=== PATIENT | female | born 1960 | race Caucasian/White ===

== ENCOUNTER 2025-07-15 13:11 | Outpatient (AMB) | payer OTHER, SELFPAY ==
--- NOTE | 2025-07-15 13:17 | A.OFFVIS_ITS ---
Intake Visit Reasons: sz Allergies azithromycin (From ZITHROMAX Z-BLAS) Allergy (Unknown, Unverified 06/03/20 15:16) NAUSEA From DILANTIN Allergy (Unknown, Uncoded 06/03/20 15:16) HIVES Medication List - Last Reconciled 07/15/25 by Sandro Ernandez MD atorvastatin 40 mg PO DAILY carbamazepine 400 mg (2 x 200 mg) PO TID 90 days phenobarbital 64.8 mg PO TID 90 days HPI Comments Details: 65-year-old right-handed woman with a long history of well-controlled seizure disorder. She is here for her annual follow-up visit. Doing well with no SZ. Sleeping better. Working 10 hr days and menopausal symptoms. No sz. or side effects. She has a long history of seizures starting in childhood which have been well controlled with no seizures in over 15 years. She also has history of migraines which have also been very rare. She has been on Tegretol and phenobarbital with no side effects. [facility] Medical History (Updated 07/15/25 @ 13:20 by Sandro Ernandez MD) Hyponatremia Migraine, unspecified, not intractable, without status migrainosus Seizure disorder Other convulsions Review of Systems Const Details: Sleep:? Difficulty getting to sleep?denies.? Difficulty maintaining sleep?denies? .? Daytime sleepiness?denies.? ?? General/Constitutional:? Change in appetite?denies.? Fatigue?denies.? Fever?denies.? Weight gain? denies.? Weight loss?denies.? ?? Respiratory:? Shortness of breath?denies.? Chest pain?denies.? ?? Cardiovascular:? Chest pain at rest?denies.? Chest pain with exertion?denies.? Dizziness? denies.? Fluid accumulation in the legs?denies.? Irregular heartbeat?denies.? Palpitations?denies.? ?? Gastrointestinal:? Constipation?denies.? Diarrhea?denies.? Difficulty swallowing?denies.? Heartburn?denies.? Nausea?denies.? ?? Genitourinary:? Frequent urination?denies.? Urgency?denies.? Incontinence?denies.? ?? Musculoskeletal:? Neck pain?denies.? Back pain?denies.? Joint stiffness?denies.? Sciatica? denies.? ?? Neurologic:? Difficulty swallowing?denies.? Balance difficulty?denies.? Coordination? normal.? Difficulty speaking?denies.? Dizziness?denies.? Fainting?denies.? Gait abnormality?denies.? Headache?denies.? Loss of strength?denies.? Loss of use of extremity?denies.? Low back pain?denies.? Memory loss?denies.? Seizures?denies.? Tics?denies.? Tingling/Numbness?denies.? Transient loss of vision?denies.? Tremor?denies.? ?? Psychiatric:? Anxiety?denies.? Auditory/visual hallucinations?denies.? Delusions?denies .? Depressed mood?denies.? Stressors?denies.? Suicidal thoughts?denies.? ?? Physical Exam Neuro Other: Mini Mental Status Exam: ? Level of Consciousness:?Alert.? Orientation:?Knows correct year, month, date, day and season,?Knows correct city, county and state. Knows correct location and floor.? Registration:?Able to register 3 objects.? Attention:?Serial 7's performed accurately.? Recall:?Able to recall 3 out of 3 objects.? Language:?Normal spontaneous speech, fluency, repetition,naming, comprehension, reading and writing.? Total Score:?30/30.? Neurological: ? Abnormal neurological findings:??none.? Mental Status:?alert and oriented X 3,?Normal attention, orientation, memory and affect.? Cranial Nerves:?Pupils are equal, round and reactive to light. Fundoscopy shows normal disc bilaterally. External occular muscles are intact. Visual barron are full, no ptosis. Face is symmetrical, no facial weakness or droop. Facial sensations are normal. Tongue protrudes in midline. Palate elevates symmetrically. Shoulder shrugging is normal..? Motor Examination:?Normal muscle tone, bulk and strength,?No atrophy or fasciculations,?No drift of the extended upper extremities,?Deep tendon reflexes are 2+?,?Plantars are flexor?.? Straight Leg Raising:?90 degrees.? Sensory Exam:?Normal light touch, temperature, pinprick, vibration and joint-position sensations?,?Rhomberg sign is absent.? Coordination:?no ataxia,?no titubation,?[id number], [id number] test and rapid alternating movements were normal.? Gait Exam:?Within normal limits.? Cerebellar Signs:?[id number] and [id number]-[id number] is normal,?no dysdiadochokinesia?.? Extrapyramidal System:?No tremor, rigidity with normal facial expressions,?No bradykinesia, no bradyphrenia. Normal arm swing and posture. No propulsion or retropulsion.? Speech:?Normal,?no dysphasia or dysarthria..? General Examination: ? GENERAL APPEARANCE:?normal,?in no acute distress.? HEART:?S1, S2 normal,?no murmurs.? LUNGS:?clear anteriorly and posteriorly.? MUSCULOSKELETAL:?normal.? EXTREMITIES:?no edema.? PSYCH:?alert, oriented,?cognitive function intact,?cooperative with exam.? Assessment & Plan Assessment & Plan (1) Seizure disorder: Code(s): G40.909 - Epilepsy, unspecified, not intractable, without status epilepticus Category: Medical Plan: continue current meds (2) Hyponatremia: Code(s): E87.1 - Hypo-osmolality and hyponatremia Category: Medical Plan Continue current meds. Orders: Orders Carbamazepine Tegretol Today G40.909 - Epilepsy, unspecified, not intractable, without status epilepticus Electrolytes Today G40.909 - Epilepsy, unspecified, not intractable, without status epilepticus Medications: Refilled carbamazepine 400 mg (2 x 200 mg) PO TID 540 tabs 3RF 90 days phenobarbital 64.8 mg PO TID 270 tabs 3RF 90 days Coding Level of Care Code Est Pt Level 4 (41097) Diagnoses Seizure disorder G40.909 Hyponatremia E87.1
== END 2025-07-15 13:33 | disposition home or self-care (01) ==
LOC: HO.HSM 13:11
PROVIDERS: PCP Internal Medicine; Visit Provider Psychiatry & Neurology Neurology
DX: G40.909 Epilepsy, unspecified, not intractable, without status epilepticus (principal); E87.1 Hypo-osmolality and hyponatremia
CPT/HCPCS: 99214